=== PATIENT | female | born 1975 | race African-American/Black ===

== ENCOUNTER 2017-01-02 10:12 | Emergency (ER) | payer MEDICAID ==
[~2017-01-02] VITALS: Ht 152.4 cm; Wt 40.8 kg
[2017-01-02 12:10] VITALS: BP 105/58
[2017-01-02] MEDS ORDERED: KETOROLAC 60MG/2ML VIAL IM ONE (12:30)
[2017-01-02] MEDS ORDERED: DIPHENHYDRAMINE 50MG/ML VIAL IM ONE (12:30)
== END 2017-01-02 13:52 | disposition home or self-care (01) ==
LOC: ER 10:12
DX: D57.1 Sickle-cell disease without crisis (principal); R52 Pain, unspecified; J45.909 Unspecified asthma, uncomplicated; F31.9 Bipolar disorder, unspecified; F20.9 Schizophrenia, unspecified
CPT/HCPCS: 96372; 99284; J1200; J1885

== ENCOUNTER 2017-03-26 23:13 | Emergency (ER) | payer MEDICAID ==
[~2017-03-26] VITALS: Ht 152.4 cm; Wt 45.0 kg
[2017-03-27] MEDS ORDERED: SODIUM CHLORIDE 0.9% 1,000 ML IV ONE (00:28)
[2017-03-27] MEDS ORDERED: ONDANSETRON HCL 4MG/2ML VIAL IV ONE (00:30)
[2017-03-27 01:09] LABS: EOSINOPHILS % 0.3 % (0.0-5.0); HEMATOCRIT. 32.9 % (36.0-48.0); HEMOGLOBIN. 10.8 g/dL (12.0-16.0); LYMPHOCYTES % 28.4 % (20.0-50.0); MEAN CORPUSCULAR HEMOGLOBIN 26.2 pg (28.0-32.0); MEAN CORPUSCULAR VOLUME 80.1 fL (81.0-99.0); MEAN PLATELET VOLUME 8.3 fl (7.4-10.4); MONOCYTES % 9.1 % (2.0-8.0); NEUTROPHILS % 61.2 % (40.0-76.0); PLATELET 226 x1000/uL (130-400); RED BLOOD CELL COUNT 4.11 mill/uL (4.2-5.4); RED CELL DISTRIBUTION WIDTH 17.6 % (11.6-14.6)
[2017-03-27 01:19] LABS: CHLORIDE 104 mEq/L (98-107)
[2017-03-27 01:28] LABS: CARBON DIOXIDE 27 mEq/L (21-32); ETHANOL BLOOD < 10 mg/dL
[2017-03-27 01:52] LABS: CLARITY URINE CLEAR (CLEAR); COLOR URINE YELLOW (YELLOW); GLUCOSE URINE NEGATIVE (NEGATIVE); KETONES URINE NEGATIVE (NEGATIVE); LEUKOCYTE ESTERASE URINE NEGATIVE (NEGATIVE); NITRITE URINE NEGATIVE (NEGATIVE); OCCULT BLOOD URINE 1+ (NEGATIVE); PROTEIN URINE NEGATIVE (NEGATIVE); SPECIFIC GRAVITY URINE 1.005 (1.005-1.030); UROBILINOGEN URINE 0.2 E.U./dL (0.2-1.0)
[2017-03-27 02:13] LABS: *AMPHETAMINES SCREEN URINE NEGATIVE (NEGATIVE); *BARBITURATES SCREEN URINE NEGATIVE (NEGATIVE); *BENZODIAZEPINES SCREEN URINE NEGATIVE (NEGATIVE); CANNABINOID URINE SCREEN NEGATIVE (NEGATIVE); METHADONE URINE SCREEN NEGATIVE (NEGATIVE); OPIATES URINE SCREEN NEGATIVE (NEGATIVE); PHENCYCLIDINE URINE SCREEN NEGATIVE (NEGATIVE)
[2017-03-27 02:16] LABS: *COCAINE SCREEN URINE PRESUMTIVE POSITIVE (NEGATIVE)
[2017-03-27 18:14] VITALS: BP 113/83
== END 2017-03-27 18:44 | disposition home or self-care (01) ==
LOC: ER 23:13
DX: T43.592A Poisoning by other antipsychotics and neuroleptics, intentional self-harm, initial encounter (principal); F14.129 Cocaine abuse with intoxication, unspecified; F41.9 Anxiety disorder, unspecified; F31.9 Bipolar disorder, unspecified; F17.200 Nicotine dependence, unspecified, uncomplicated; F12.10 Cannabis abuse, uncomplicated; Y92.89 Other specified places as the place of occurrence of the external cause
CPT/HCPCS: 36415; 80053; 80305; 80307; 80329; 81001; 83735; 85025; 93005; 96361; 96374; 99291; G0482; J2405; J7030; Z7610; A4315